=== PATIENT | male | born 1970 | race Caucasian/White ===

== ENCOUNTER → 2016-08-23 | Outpatient (REF) | payer BC ==
[~2016-08-23] MED LIST: HUMALOG; NICO21DI4 TD; PAIN325T OR
[2016-08-23 11:14] LABS: ALBUMIN 3.6 GM/DL (3.2-5.2); ALKALINE PHOSPHATASE 79 U/L (45-117); ALT/SGPT 36 U/L (12-78); ANION GAP 7 MEQ/L (8-16); AST/SGOT 25 U/L (15-37); BILIRUBIN,TOTAL 1.1 MG/DL (0.2-1.0); BLOOD UREA NITROGEN 22 MG/DL (7-18); CALCIUM LEVEL 8.5 MG/DL (8.5-10.1); CARBON DIOXIDE LEVEL 27 MEQ/L (21-32); CHLORIDE LEVEL 103 MEQ/L (98-107); CREATININE FOR GFR 0.97 MG/DL (0.70-1.30); GLOMERULAR FILTRATION RATE > 60.0 (>60); GLUCOSE, FASTING 249 MG/DL (70-105); POTASSIUM SERUM 4.6 MEQ/L (3.5-5.1); SODIUM LEVEL 137 MEQ/L (136-145); TOTAL PROTEIN 6.6 GM/DL (6.4-8.2)
== END ==
LOC: M SFHCPLAZ 07:48
PROVIDERS: ATTEND Family Medicine
DX: E55.9 Vitamin D deficiency, unspecified (principal); E10.9 Type 1 diabetes mellitus without complications; M75.40 Impingement syndrome of unspecified shoulder

== ENCOUNTER → 2017-02-18 | Outpatient (REF) | payer BC ==
[2017-02-18 12:30] LABS: ALBUMIN 3.6 GM/DL (3.2-5.2); ALBUMIN/GLOBULIN RATIO 1.29 (1.00-1.93); ALKALINE PHOSPHATASE 73 U/L (45-117); ALT/SGPT 37 U/L (12-78); ANION GAP 7 MEQ/L (8-16); AST/SGOT 25 U/L (7-37); BILIRUBIN,TOTAL 1.1 MG/DL (0.2-1.0); BLOOD UREA NITROGEN 16 MG/DL (7-18); CALCIUM LEVEL 8.6 MG/DL (8.5-10.1); CARBON DIOXIDE LEVEL 28 MEQ/L (21-32); CHLORIDE LEVEL 103 MEQ/L (98-107); CHOLESTEROL LEVEL 149 MG/DL (<200); CREATININE FOR GFR 0.91 MG/DL (0.70-1.30); GLOMERULAR FILTRATION RATE > 60.0 (>60); GLUCOSE, FASTING 200 MG/DL (70-105); POTASSIUM SERUM 4.1 MEQ/L (3.5-5.1); SODIUM LEVEL 138 MEQ/L (136-145); TOTAL PROTEIN 6.4 GM/DL (6.4-8.2); TRIGLYCERIDES LEVEL 53 MG/DL (<150)
== END ==
LOC: M SFHCPLAZ 08:21
PROVIDERS: ATTEND Family Medicine
DX: E78.5 Hyperlipidemia, unspecified (principal); E10.9 Type 1 diabetes mellitus without complications

== ENCOUNTER 2017-05-27 06:17 | Emergency (ER) | payer BC | END 2017-05-27 08:03 | disposition home or self-care (01) | LOC: M ED 06:17 | DX: H60.92 Unspecified otitis externa, left ear (principal); H66.002 Acute suppurative otitis media without spontaneous rupture of ear drum, left ear; E11.9 Type 2 diabetes mellitus without complications; F17.210 Nicotine dependence, cigarettes, uncomplicated; Z79.4 Long term (current) use of insulin | CPT/HCPCS: 99283 ==

== ENCOUNTER → 2017-11-13 | Outpatient (REF) | payer BC ==
[2017-11-13 12:30] LABS: BASO # 0.1 10^3/uL (0.0-0.2); BASO % 0.5 % (0.0-1.0); EOS # 0.1 10^3/uL (0.0-0.50); EOS % 1.1 % (0.0-3.0); HEMATOCRIT 44.4 % (42.0-52.0); HEMOGLOBIN 14.8 g/dl (13.5-17.5); IMMATURE GRANULOCYTE % 0.4 % (0-3.0); LYMPH # 2.4 10^3/uL (1.5-4.5); LYMPH % 23.1 % (24.0-44.0); MEAN CORPUSCULAR HEMOGLOBIN 30.8 pg (27.0-33.0); MEAN CORPUSCULAR HGB CONC 33.3 g/dl (32.0-36.5); MEAN CORPUSCULAR VOLUME 92.5 fl (80.0-96.0); MONO # 0.6 10^3/uL (0.0-0.8); MONO % 5.6 % (0.0-5.0); NEUTROPHILS # 7.1 10^3/uL (1.8-7.7); NEUTROPHILS % 69.3 % (36.0-66.0); PLATELET COUNT, AUTOMATED 260 10^3/uL (150-450); RED CELL DISTRIBUTION WIDTH 12.9 % (11.5-14.5); WHITE BLOOD COUNT 10.3 10^3/uL (4.0-10.0)
[2017-11-13 12:54] LABS: TOTAL 25(OH) VITAMIN D 22.3 NG/ML (30.0-100.0)
[2017-11-13 12:55] LABS: PTH INTACT 37.5 PG/ML (18.5-88.0); VITAMIN B12 LEVEL 279 PG/ML (247-911)
[2017-11-13 12:58] LABS: ALBUMIN 3.9 GM/DL (3.2-5.2); ALBUMIN/GLOBULIN RATIO 1.34 (1.00-1.93); ALKALINE PHOSPHATASE 69 U/L (45-117); ALT/SGPT 27 U/L (12-78); ANION GAP 8 MEQ/L (8-16); AST/SGOT 20 U/L (7-37); BILIRUBIN,DIRECT 0.3 MG/DL (0.0-0.2); BLOOD UREA NITROGEN 17 MG/DL (7-18); CALCIUM LEVEL 8.8 MG/DL (8.5-10.1); CARBON DIOXIDE LEVEL 27 MEQ/L (21-32); CHLORIDE LEVEL 105 MEQ/L (98-107); CREATININE FOR GFR 0.91 MG/DL (0.70-1.30); GLOMERULAR FILTRATION RATE > 60.0 (>60); GLUCOSE, FASTING 196 MG/DL (70-100); POTASSIUM SERUM 4.5 MEQ/L (3.5-5.1); SODIUM LEVEL 140 MEQ/L (136-145); TOTAL PROTEIN 6.8 GM/DL (6.4-8.2)
[2017-11-13 15:10] LABS: ESTIMATED AVERAGE GLUCOSE 189 MG/DL (60-110); HEMOGLOBIN A1c 8.2 %
== END ==
LOC: M SFHCPLAZ 08:39
DX: E80.4 Gilbert syndrome (principal); E10.9 Type 1 diabetes mellitus without complications; E55.9 Vitamin D deficiency, unspecified
CPT/HCPCS: 82248

== ENCOUNTER → 2018-09-14 | Outpatient (REF) | payer BC ==
[~2018-09-14] MED LIST changes: +AUGM875T28 PO; +CIPRODEX AS
[2018-09-14 11:33] LABS: ALBUMIN 3.6 GM/DL (3.2-5.2); ALT/SGPT 31 U/L (12-78); BLOOD UREA NITROGEN 16 MG/DL (7-18); CALCIUM LEVEL 8.7 MG/DL (8.5-10.1); CARBON DIOXIDE LEVEL 28 MEQ/L (21-32); CHLORIDE LEVEL 105 MEQ/L (98-107); CHOLESTEROL LEVEL 189 MG/DL (<200); CPK CREATINE PHOSPHOKINASE 129 U/L (39-308); CREATININE FOR GFR 0.96 MG/DL (0.70-1.30); FREE T4 1.39 NG/DL (0.76-1.46); GLOMERULAR FILTRATION RATE > 60.0 (>60); GLUCOSE, FASTING 216 MG/DL (70-100); HDL CHOLESTEROL 50 MG/DL (>40); LDL CHOLESTEROL 123 MG/DL (<100); NON-HDL-C 139 MG/DL; POTASSIUM SERUM 4.9 MEQ/L (3.5-5.1); SODIUM LEVEL 138 MEQ/L (136-145); THYROID STIMULATING HORMONE 0.906 uIU/ML (0.358-3.740); TOTAL PROTEIN 6.8 GM/DL (6.4-8.2); TRIGLYCERIDES LEVEL 81 MG/DL (<150)
== END ==
LOC: M SFHCPLAZ 08:20
PROVIDERS: ATTEND Family Medicine
DX: Z12.5 Encounter for screening for malignant neoplasm of prostate (principal); E78.5 Hyperlipidemia, unspecified; E53.8 Deficiency of other specified B group vitamins
CPT/HCPCS: 36415; 80053; 80061; 82550; 82747; 84439; 84443; 86140; G0103

== ENCOUNTER 2018-11-30 12:10 | Day surgery (SDC) | payer BC ==
[~2018-11-30] VITALS: Ht 180.3 cm; Wt 67.6 kg
[~2018-11-30 12:10] MED LIST changes: +ATOR80TA59 PO; +NS 1,000 ML IV ONE
[2018-11-30] MEDS ORDERED: LIDOCAINE 2% INJ 100 MG/5 ML SDV (FOR ANES.) As Ordered ONE (12:41)
[2018-11-30] MEDS ORDERED: PROPOFOL 200 MG/20 ML VIAL As Ordered ONE ×2 (12:41→14:24)
--- NOTE | 2018-11-30 14:48 | ROOR ---
Patient Name: Lavon Rajput Procedure Date: 11/30/2018 2:05 PM Date of : 1970 Age: 48 Room: [facility] Gender: Male Note Status: Finalized Procedure: Total Colonoscopy to Cecum + Cold Snare Polypectomy + Hemoclip Indications: Screening for colorectal malignant neoplasm Providers: David Zamora MD Referring MD: Eriberto Cordova MD Requesting Provider: Medicines: Monitored Anesthesia Care Complications: No immediate complications. Procedure: Pre-Anesthesia Assessment: - The heart rate, respiratory rate, oxygen saturations, blood pressure, adequacy of pulmonary ventilation, and response to care were monitored throughout the procedure. The Colonoscope was introduced through the anus and advanced to the cecum, identified by appendiceal orifice and ileocecal valve. The colonoscopy was performed without difficulty. The patient tolerated the procedure well. The quality of the bowel preparation was excellent. Findings: The perianal and digital rectal examinations were normal. Non-bleeding internal hemorrhoids were found during retroflexion. The hemorrhoids were small and Grade I (internal hemorrhoids that do not prolapse). Scattered small-mouthed diverticula were found in the recto-sigmoid colon, sigmoid colon and descending colon. A medium polyp was found in the transverse colon. The polyp was sessile. The polyp was removed with a cold snare. Resection and retrieval were complete. A medium polyp was found in the cecum. The polyp was sessile. The polyp was removed with a cold snare. Resection and retrieval were complete. To prevent bleeding after the polypectomy, one hemostatic clip was successfully placed (MR conditional). There was no bleeding at the end of the procedure. A small polyp was found at 40 cm proximal to the anus. The polyp was sessile. The polyp was removed with a cold snare. Resection and retrieval were complete. The exam was otherwise without abnormality on direct and retroflexion views. Impression: - Non-bleeding internal hemorrhoids. - Diverticulosis in the recto-sigmoid colon, in the sigmoid colon and in the descending colon. - One medium polyp in the transverse colon, removed with a cold snare. Resected and retrieved. - One medium polyp in the cecum, removed with a cold snare. Resected and retrieved. Clip (MR conditional) was placed. - One small polyp at 40 cm proximal to the anus, removed with a cold snare. Resected and retrieved. - The examination was otherwise normal on direct and retroflexion views. - The exam was otherwise normal to the cecum. Recommendation: - Patient has a contact number available for emergencies. The signs and symptoms of potential delayed complications were discussed with the patient. Return to normal activities tomorrow. Written discharge instructions were provided to the patient. - High fiber diet. - Discharge patient to home. - Continue present medications. - Await pathology results. - Telephone GI clinic for pathology results in 1 week. - Repeat colonoscopy in 5 years for surveillance based on pathology results. - Return to referring physician. - The findings and recommendations were discussed with the patient's family. David Zamora MD David Zamora MD 11/30/2018 2:48:22 PM Electronically signed by David Zamora MD Number of Addenda: 0 Note Initiated On: 11/30/2018 2:05 PM Estimated Blood Loss: Estimated blood loss: none.
[2018-11-30 15:06] VITALS: BP 146/81
== END 2018-11-30 15:08 | disposition home or self-care (01) ==
LOC: M OPP 12:10
PROVIDERS: ATTEND Internal Medicine Gastroenterology
DX: Z12.11 Encounter for screening for malignant neoplasm of colon (principal); K64.0 First degree hemorrhoids; D12.3 Benign neoplasm of transverse colon; D12.0 Benign neoplasm of cecum; K57.30 Diverticulosis of large intestine without perforation or abscess without bleeding; Z79.899 Other long term (current) drug therapy; Z79.4 Long term (current) use of insulin; F17.210 Nicotine dependence, cigarettes, uncomplicated

== ENCOUNTER → 2019-01-04 | Outpatient (REF) | payer BC ==
[~2019-01-04] MED LIST changes: -NS 1,000 ML IV ONE
[2019-01-04 10:21] LABS: BASO # 0.1 10^3/uL (0.0-0.2); BASO % 0.5 % (0.0-1.0); EOS # 0.3 10^3/uL (0.0-0.5); EOS % 2.6 % (0.0-3.0); HEMATOCRIT 45.2 % (42.0-52.0); HEMOGLOBIN 15.4 g/dl (13.5-17.5); LYMPH # 2.6 10^3/uL (1.5-5.0); LYMPH % 23.5 % (24.0-44.0); MEAN CORPUSCULAR HEMOGLOBIN 32.1 pg (27.0-33.0); MEAN CORPUSCULAR HGB CONC 34.1 g/dl (32.0-36.5); MEAN CORPUSCULAR VOLUME 94.2 fl (80.0-96.0); MONO # 0.9 10^3/uL (0.0-0.8); MONO % 8.3 % (0.0-5.0); NEUTROPHILS # 7.1 10^3/uL (1.5-8.5); NEUTROPHILS % 64.7 % (36.0-66.0); PLATELET COUNT, AUTOMATED 235 10^3/uL (150-450); WHITE BLOOD COUNT 10.9 10^3/uL (4.0-10.0)
[2019-01-04 10:33] LABS: APPEARANCE, URINE HAZY (CLEAR); BACTERIA, URINE AUTO NEGATIVE (NEGATIVE); BILIRUBIN, URINE AUTO NEGATIVE (NEGATIVE); BLOOD, URINE BLOOD NEGATIVE (NEGATIVE); COLOR, URINE AMBER (YELLOW); GLUCOSE, URINE (UA) AUTO 1+ mg/dL (NEGATIVE); KETONE, URINE AUTO TRACE mg/dL (NEGATIVE); LEUKOCYTE ESTERASE, URINE AUTO NEGATIVE (NEGATIVE); MUCUS, URINE SMALL (NEGATIVE); NITRITE, URINE AUTO NEGATIVE (NEGATIVE); PROTEIN, URINE AUTO NEGATIVE (NEGATIVE); RBC, URINE AUTO 4 /HPF (0-3); SPECIFIC GRAVITY URINE AUTO 1.027 (1.002-1.035); SQUAMOUS EPITHELIAL CELL UR AU 0 /HPF (0-6); WBC, URINE AUTO 0 /HPF (0-3)
[2019-01-04 10:43] LABS: CHOLESTEROL RISK RATIO 2.625 (<5)
[2019-01-04 10:53] LABS: MALB URINE SIEMENS 20.2 MG/L; MAU/CREAT RATIO 7.5 MCG/MG (0.0-30.0)
[2019-01-04 10:54] LABS: HEMOGLOBIN A1c 8.2 %
== END ==
LOC: M SFHCPLAZ 08:08
PROVIDERS: ATTEND Family Medicine
DX: E53.8 Deficiency of other specified B group vitamins (principal); E78.5 Hyperlipidemia, unspecified; E10.9 Type 1 diabetes mellitus without complications

== ENCOUNTER → 2019-04-05 | Outpatient (CLI) | payer BC ==
[~2019-04-05] MED LIST changes: +ISOVUE-370 76% 100ML VIAL (Q9967) As Ordered ONE
--- NOTE | 2019-04-06 04:32 | REP ---
Clinical: Microscopic hematuria. Technique: Axial precontrast, contrast enhanced, and delayed images of the abdomen and pelvis using 100 ml Isovue 370 intravenous contrast material with coronal and sagittal re-formations. Volume rendered 3-D reconstructed CT urogram obtained. Findings: The right kidney is normal in all phases of evaluation. The left kidney demonstrates 2 mm nonobstructing calculus and sub centimeter simple lower pole cyst. The bilateral ureters and bladder are normal. The liver includes 2 cm flash filling hemangioma in the anterior right lobe, 2 cm hemangioma in the posterior right lobe, and 1.3 cm hemangioma in the lateral segment left lobe. Smaller scattered arterial phased enhancing foci are also identified and likely represent smaller scattered hemangiomas. Spleen, pancreas, and bilateral adrenal glands are normal. Evidence of prior cholecystectomy noted. The enteric system is without obstruction or acute inflammatory process. Pelvis demonstrates normal bladder and age appropriate prostate/seminal vesicles. No ascites. No free air. No adenopathy. Abdominal aorta without aneurysm or dissection. Musculoskeletal structures are intact. Impression: 1. Urinary tract system includes 2 mm nonobstructing left renal calculus and subcentimeter simple left renal cyst. 2. Multiple hepatic hemangiomas. Electronically Signed by Musa Ricks MD 04/06/2019 04:23 A
== END ==
LOC: M RAD 14:54
PROVIDERS: ATTEND Family Medicine
DX: R31.29 Other microscopic hematuria (principal); N20.0 Calculus of kidney; N28.1 Cyst of kidney, acquired; D18.03 Hemangioma of intra-abdominal structures
CPT/HCPCS: 74178; Q9967

== ENCOUNTER → 2020-07-13 | Outpatient (CLI) | payer BC ==
[~2020-07-13] MED LIST changes: +CIPR7.5D5 AS; -CIPRODEX AS; -ISOVUE-370 76% 100ML VIAL (Q9967) As Ordered ONE
--- NOTE | 2020-07-13 11:07 | REP ---
INDICATION: NEPHROLITHIASIS COMPARISON: None TECHNIQUE: Real time harden scale ultrasound examination using curved array transducer. FINDINGS: Kidneys are normal in contour, size, echogenicity and reniform shape without hydronephrosis, cystic or renal mass lesion. The right kidney measures 10.7 x 5.8 x 5.1 cm and includes 5 mm upper pole calculus and 4 mm lower pole calculus. Left kidney measures 11.5 x 6.1 x 7.0 cm and includes 6 mm lower pole calculus. Bladder is grossly unremarkable. IMPRESSION: 1. Few bilateral nephroliths as above. <Electronically signed by Musa Ricks > 07/13/20 [id number]
== END ==
LOC: M RAD 10:25
PROVIDERS: ATTEND Family Medicine
DX: N20.0 Calculus of kidney (principal)

== ENCOUNTER → 2021-01-09 | Outpatient (CLI) | payer BC ==
--- NOTE | 2021-01-09 16:11 | REP ---
INDICATION: NEPHROLITHIASIS COMPARISON: 04/05/2019 TECHNIQUE: Axial noncontrast images from the lung bases to the pubic symphysis with coronal and sagittal reformations. This CT examination was performed using the following dose reduction techniques: Automated exposure control, adjustment of mA and/or kv according to the patient's size, and use of iterative reconstruction technique. FINDINGS: Lung bases are clear. Visualized heart and pericardium normal. Liver includes scattered hypodensities measuring up to 3 cm which represent benign cysts or hemangiomas based on CT dated 04/05/2019. Spleen, pancreas, gallbladder, and bilateral adrenal glands are normal. Kidneys demonstrate few scattered nonobstructing nephroliths measuring up to 3 mm. No associated perinephric stranding, hydroureteronephrosis, or obstructing ureteral calculus. The enteric system is unremarkable and without obstruction or acute inflammatory process. Normal terminal ileum and appendix identified in the right lower quadrant. Few scattered sigmoid diverticula noted without acute diverticulitis. Pelvis demonstrates normal bladder and age-appropriate uterus/adnexa. No ascites. No free air. No adenopathy. No focal inflammatory stranding. Abdominal aorta without aneurysm. Musculoskeletal structures are intact and without acute osseous abnormality. IMPRESSION: 1. Few bilateral nonobstructing nephroliths up to 3 mm. 2. Hepatic hypodensities measuring up to 3 cm similar to prior examination and consistent with cysts/hemangiomas. <Electronically signed by Musa Ricks > 01/09/21 [id number]
== END ==
LOC: M PLAIMG 10:54
PROVIDERS: ATTEND Family Medicine
DX: N20.0 Calculus of kidney (principal); R93.2 Abnormal findings on diagnostic imaging of liver and biliary tract

== ENCOUNTER → 2022-09-23 | Outpatient (REF) | payer BC | LOC: M SFHCPLAZ 18:44 | PROVIDERS: ATTEND Family Medicine | DX: E10.9 Type 1 diabetes mellitus without complications (principal); I10 Essential (primary) hypertension; E53.8 Deficiency of other specified B group vitamins; E78.5 Hyperlipidemia, unspecified; K76.0 Fatty (change of) liver, not elsewhere classified; Z53.9 Procedure and treatment not carried out, unspecified reason ==

== ENCOUNTER → 2023-02-11 | Outpatient (CLI) | payer BC | LOC: M PLAIMG 13:48 | PROVIDERS: ATTEND Family Medicine | DX: M47.812 Spondylosis without myelopathy or radiculopathy, cervical region (principal) ==

== ENCOUNTER → 2023-02-11 | Outpatient (CLI) | payer BC | LOC: M RAD 16:15 | PROVIDERS: ATTEND Family Medicine | DX: M47.812 Spondylosis without myelopathy or radiculopathy, cervical region (principal); F17.210 Nicotine dependence, cigarettes, uncomplicated; Z53.9 Procedure and treatment not carried out, unspecified reason ==

== ENCOUNTER → 2023-07-23 | Outpatient (CLI) | payer BC | LOC: M RAD 16:14 | PROVIDERS: ATTEND Family Medicine | DX: Z12.2 Encounter for screening for malignant neoplasm of respiratory organs (principal); F17.210 Nicotine dependence, cigarettes, uncomplicated; I25.10 Atherosclerotic heart disease of native coronary artery without angina pectoris; R91.8 Other nonspecific abnormal finding of lung field; N20.0 Calculus of kidney ==

== ENCOUNTER 2024-01-12 10:11 | Day surgery (SDC) | payer BC ==
[~2024-01-12] VITALS: Ht 177.8 cm; Wt 66.6 kg
[~2024-01-12 10:11] MED LIST changes: +INSU100V6 SC; +NS 250 ML IV ONE; +TELM1TAB33 PO
[2024-01-12] MEDS ORDERED: propofoL 200 MG/20 ML VIAL As Ordered ONE (10:47)
[2024-01-12] MEDS ORDERED: LIDOCAINE 2% 100MG/5ML SDV (FOR ANES.) As Ordered ONE (10:47)
[2024-01-12 12:10] VITALS: TEMP 98.2
[2024-01-12 12:30] VITALS: BP 118/56; O2SAT 98
== END 2024-01-12 12:30 | disposition home or self-care (01) ==
LOC: M OPP 10:11
PROVIDERS: ATTEND Internal Medicine Gastroenterology
DX: Z12.11 Encounter for screening for malignant neoplasm of colon (principal); D12.2 Benign neoplasm of ascending colon; K64.0 First degree hemorrhoids; K57.30 Diverticulosis of large intestine without perforation or abscess without bleeding; Z86.0100 Personal history of colon polyps, unspecified; I10 Essential (primary) hypertension; E78.00 Pure hypercholesterolemia, unspecified; E11.9 Type 2 diabetes mellitus without complications; F17.210 Nicotine dependence, cigarettes, uncomplicated; Z79.899 Other long term (current) drug therapy; Z79.4 Long term (current) use of insulin

== ENCOUNTER → 2024-12-03 | Outpatient (REF) | payer BC ==
[~2024-12-03] MED LIST changes: -NS 250 ML IV ONE
== END ==
LOC: M SFHCPLAZ 17:54
PROVIDERS: ATTEND Family Medicine
DX: Z53.9 Procedure and treatment not carried out, unspecified reason (principal)

== ENCOUNTER → 2024-12-20 | Outpatient (CLI) | payer BC ==
[~2024-12-20] MED LIST changes: +ISOVUE-370 76% 100 ML VIAL As Ordered ONE
== END ==
LOC: M RAD 07:12
PROVIDERS: ATTEND Family Medicine
DX: K76.0 Fatty (change of) liver, not elsewhere classified (principal); R17 Unspecified jaundice